=== PATIENT | male | born 1995 | race Caucasian/White ===

== ENCOUNTER 2016-06-28 15:47 | Inpatient (IN) ==
--- NOTE | 2016-06-28 15:59 | Emergency Department Note ---
Disposition Clinical Impression: Suicidal ideation Depression Qualifiers: Depression Type: unspecified Qualified Code(s): F32.9 - Major depressive disorder, single episode, unspecified Laceration of left wrist Qualifiers: Encounter type: initial encounter Qualified Code(s): S61.512A - Laceration without foreign body of left wrist, initial encounter Disposition: Admitted As Inpatient Condition: Good Referrals: NO,PCP [Primary Care Provider] - Time of Disposition: 21:17 Psych HPI - General Stated Complaint: SI attempt Time Seen by Provider: 06/28/16 15:48 Source: patient Mode of arrival: ambulatory Limitations: no limitations Nursing Notes Reviewed: Yes Vital Signs Reviewed: Yes - History of Present Illness HPI Narrative: Patient states he has been feeling depressed. He stopped taking his Depakote one to 2 weeks ago. He did a shot of vodka today and then self-induced a superficial laceration to his left volar wrist with a razor blade. He states he was arguing with his family. He feels suicidal. He denies auditory or visual hallucinations. He smoked marijuana couple of days ago. 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 Duration: intermittent History of similar episodes: Yes Improves with: none Worsens with: none Context: recent alcohol abuse, not taking psychiatric medications Alleged intoxication: No Associated Psychiatric Symptoms: depression, suicidal ideation Associated symptoms: Reports: denies other symptoms Traumatic symptoms: extremity injury Treatments prior to arrival: none Self harm or harm to others: admits thoughts of self harm, self-inflicted trauma - Related Data Allergies Allergy/AdvReac Type Severity Reaction Status Date / Time No Known Allergies Allergy Verified 06/28/16 15:51 All systems ED: reviewed and negative except as stated. Constitutional: Reports: as per HPI Eyes: Reports: as per HPI ENT ED: Reports: as per HPI Cardiovascular: Reports: as per HPI Respiratory: Reports: as per HPI Gastrointestinal: Reports: as per HPI Genitourinary: Reports: as per HPI Musculoskeletal: Reports: as per HPI Integumentary: Reports: other (Superficial self-inflicted skin abrasion) Neurological: Reports: as per HPI Psychiatric: Reports: depression, suicidal thoughts Endocrine: Reports: as per HPI Hematological/Lymphatic: Reports: as per HPI Allergic/Immunologic: Reports: as per HPI Past Medical History - Past Medical History Source: patient Medical history: Reports: no medical history Psychiatric history: Reports: anxiety, bipolar, depression, prior suicide attempt - Social History Smoking Status: Current some day smoker Smokeless Tobacco Status: No Alcohol use: Reports: none Drug use: Reports: marijuana Physical Exam - General Limitations: no limitations General appearance: alert, in no apparent distress - Head Head exam: atraumatic - Eye Eye exam: Present: normal appearance - ENT ENT exam: normal exam - Neck Neck exam: Present: normal inspection - Chest Chest inspection: Present: normal inspection, symmetric chest wall rise - Respiratory Respiratory exam: Present: normal lung sounds bilaterally - Cardiovascular Cardiovascular exam: Present: normal rhythm, tachycardia, normal heart sounds - Rectal Exam Rectal exam: Present: deferred - Neurological Exam Neurological exam: Present: alert, oriented X3, CN II-XII intact - Psychiatric Psychiatric exam: Present: normal mood, flat affect - Skin Skin exam: Present: warm, dry, other (Transverse superficial 3 cm laceration/ abrasion to the volar left wrist. No active bleeding) Course Course Narrative: Patient presents feeling suicidal and depressed. I will attempt to clear him medically for behavioral evaluation - Reevaluation(s) Reevaluation #1: Cleared medically for behavioral evaluation at 17:12 Reevaluation #2: The patient's self-inflicted superficial laceration will not require repair Reevaluation #3: 1A recs placement Additional Reevaluation(s): 1A now states that he cannot place him to a "diagnosis facility" because of insurance reasons. They state they are unable to admit him, per our psychiatrist, our psychiatric facility due to concern for alcohol withdrawal. They request admission to our medicine service. Call placed to the admitting hospitalist - Consultations Consultation #1: the hospitalist has come to the emergency department to evaluate the patient. He states the patient does not appear to be undergoing withdrawal. He recommends a dose of Librium just in case. He agrees to speak with the on-call psychiatrist to arrange disposition agreement Consultation #2: Dr. Ash accepts to 1A Vital Signs Temperature 98.3 F 06/28/16 15:51 Pulse Rate 101 06/28/16 15:51 Respiratory Rate 15 06/28/16 15:51 Blood Pressure 214/137 06/28/16 15:51 O2 Sat by Pulse Oximetry 97 06/28/16 15:51 Temperature 98.3 F 06/28/16 15:51 Pulse Rate 84 06/28/16 18:45 Respiratory Rate 15 06/28/16 16:02 Blood Pressure 152/79 06/28/16 18:45 O2 Sat by Pulse Oximetry 97 06/28/16 16:02 Oxygen Delivery Oxygen Delivery Room Air Psych - Lab Data Result diagrams: 06/28/16 16:21 06/28/16 16:21 Lab Results 06/28/16 06/28/16 06/28/16 Range/Units 16:02 16:21 16:21 WBC 8.8 (4.3-11.1) K/mcL RBC 5.32 (4.19-5.50) M/mcL Hgb 16.4 (12.9-16.9) g/dL Hct 47.2 (37.5-50.1) % MCV 88.7 (83.0-100.0) fL MCH 30.8 (28.0-33.3) pg MCHC 34.7 (31.6-35.5) g/dL RDW 13.1 (11.5-14.5) % Plt Count 234 (140-400) K/mcL MPV 10.1 (9.4-12.4) fL Immature Gran % 0.2 (0-4) % Seg Neutrophils % 57.3 % Lymphocytes % 28.7 % Monocytes % 9.6 % Eosinophils % 3.6 % Basophils % 0.6 % Neutrophils # 5.0 (1.6-8.9) K/mcL Lymphocytes # 2.5 (0.6-4.6) K/mcL Monocytes # 0.8 (0.0-1.3) K/mcL Eosinophils # 0.3 (0.0-0.6) K/mcL Basophils # 0.1 (0.0-0.2) K/mcL Sodium 140 (136-145) mEq/L Potassium 3.6 (3.5-4.5) mEq/L Chloride 105 (98-109) mEq/L Carbon Dioxide 25 (19-29) mEq/L BUN 12 (8-26) mg/dL Creatinine 1.05 (0.72-1.25) mg/dL Est GFR ( Amer) > 60 (> 60) Est GFR (Non-Af Amer) > 60 (> 60) BUN/Creatinine Ratio 11 (6-26) Glucose 88 (70-99) mg/dL Calculated Osmolality 289 (280-300) Calcium 10.1 (8.6-10.8) mg/dL Total Bilirubin 0.6 (0.2-1.2) mg/dL AST 26 (5-34) Units/L ALT 36 (0-55) Units/L Alkaline Phosphatase 48 (38-126) Units/L Serum Total Protein 8.3 (6.0-8.3) g/dL Albumin 4.7 (3.5-5.0) g/dL Globulin 3.6 H (2.4-3.5) g/dL Albumin/Globulin Ratio 1.3 (1.1-2.2) Salicylates < 5.0 L (15-30) mg/dL Urine Opiates Screen Negative (Hqmbwf=351) ng/mL Acetaminophen < 1.0 L (10-30) mcg/mL Ur Barbiturates Screen Negative (Bjokrv=816) ng/mL Ur Phencyclidine Scrn Negative (Cutoff=25) ng/mL Ur Amphetamines Screen Negative (Jlmbgs=1632) ng/mL U Benzodiazepines Scrn Positive H (Dqijqo=305) ng/mL Urine Cocaine Screen Negative (Cutoff= 300) ng/mL U Marijuana (THC) Screen Positive H (Cutoff = 50) ng/mL Ethyl Alcohol < 10 (0-10) mg/dL Psychiatric Medical Clearance - Medical Clearance Checklist Medical History: No Social History Section defined Current Vitals: Last Vital Signs Temp 98.3 F 06/28/16 15:51 Pulse 84 06/28/16 18:45 Resp 15 06/28/16 16:02 BP 152/79 06/28/16 18:45 Pulse Ox 97 06/28/16 16:02 Psychiatric Lab Panel: Drug Levels and Toxicity 06/28/16 06/28/16 16:02 16:21 Urine Opiates Screen Negative Acetaminophen < 1.0 L Ur Barbiturates Screen Negative Ur Phencyclidine Scrn Negative Ur Amphetamines Screen Negative U Benzodiazepines Scrn Positive H Urine Cocaine Screen Negative U Marijuana (THC) Screen Positive H Ethyl Alcohol < 10 Abnormal Labs: Abnormal lab results Globulin 3.6 g/dL (2.4-3.5) H 06/28/16 16:21 Salicylates < 5.0 mg/dL (15-30) L 06/28/16 16:21 Acetaminophen < 1.0 mcg/mL (10-30) L 06/28/16 16:21 U Benzodiazepines Scrn Positive ng/mL (Nszvfu=452) H 06/28/16 16:02 U Marijuana (THC) Screen Positive ng/mL (Cutoff = 50) H 06/28/16 16:02 Statement of Medical Clearance: I have evaluated the patient, reviewed diagnostic information, and certify that the patient's medical condition is sufficiently stable that transfer to the psychiatric unit does not pose a significant risk of deterioration.
[2016-06-28 16:19] LABS: Amphetamine Screen,Urine Negative ng/mL (Cutoff=1000); Barbiturate Screen,Urine Negative ng/mL (Cutoff=200); Benzodiazepines Screen,Urine Positive ng/mL (Cutoff=200); Cannabinoid Screen,Urine Positive ng/mL (Cutoff = 50); Cocaine Screen,Urine Negative ng/mL (Cutoff= 300); Opiate Screen,Urine Negative ng/mL (Cutoff=300); Phencyclidine Screen,Urine Negative ng/mL (Cutoff=25)
[2016-06-28 16:43] LABS: Basophils # 0.1 K/mcL (0.0-0.2); Basophils % 0.6 %; Eosinophils # 0.3 K/mcL (0.0-0.6); Eosinophils % 3.6 %; Hematocrit 47.2 % (37.5-50.1); Hemoglobin 16.4 g/dL (12.9-16.9); Immature Granulocytes % 0.2 % (0-4); Lymphocytes # 2.5 K/mcL (0.6-4.6); Lymphocytes % 28.7 %; Mean Corpuscular HGB Conc 34.7 g/dL (31.6-35.5); Mean Corpuscular Hemoglobin 30.8 pg (28.0-33.3); Mean Corpuscular Volume 88.7 fL (83.0-100.0); Mean Platelet Volume 10.1 fL (9.4-12.4); Monocytes # 0.8 K/mcL (0.0-1.3); Monocytes % 9.6 %; Platelet Count 234 K/mcL (140-400); Red Blood Count 5.32 M/mcL (4.19-5.50); Red Cell Distribution Width 13.1 % (11.5-14.5); Segmented Neutrophils % 57.3 %
[2016-06-28 17:08] LABS: Alanine Aminotransferase 36 Units/L (0-55); Albumin 4.7 g/dL (3.5-5.0); Albumin/Globulin Ratio 1.3 (1.1-2.2); Alkaline Phosphatase 48 Units/L (38-126); Aspartate Amino Transferase 26 Units/L (5-34); BUN/Creatinine Ratio 11 (6-26); Bilirubin,Total 0.6 mg/dL (0.2-1.2); Blood Urea Nitrogen 12 mg/dL (8-26); Calcium 10.1 mg/dL (8.6-10.8); Carbon Dioxide 25 mEq/L (19-29); Chloride 105 mEq/L (98-109); Globulin 3.6 g/dL (2.4-3.5); Glucose 88 mg/dL (70-99); Osmolality,Calculated 289 (280-300); Potassium 3.6 mEq/L (3.5-4.5); Sodium 140 mEq/L (136-145); Total Protein 8.3 g/dL (6.0-8.3); eGFR For African Americans > 60 (> 60); eGFR For Non-African Americans > 60 (> 60)
[2016-06-28 17:09] LABS: Ethanol < 10 mg/dL (0-10); Salicylate < 5.0 mg/dL (15-30)
[2016-06-28 17:56] LABS: Acetaminophen < 1.0 mcg/mL (10-30)
[2016-06-28] MEDS ORDERED: *HR* LORazepam 1 MG TABLET PO PRN ×2 (21:36→22:35)
--- NOTE | 2016-06-28 21:43 | Internal Medicine Consult Note ---
Date of Encounter: 06/28/16 Time of Encounter: 21:39 - Assessment and Plan (1) Alcohol use Current Visit: Yes Status: Acute Assessment and plan: At this point, I do not think the patient is at risk for acute alcohol withdrawal. We may continue Librium taper starting at 50 mg every 6 hours and hold if sedated, can decrease the dose once he seen by psychiatry. Continue use Ativan as needed orally. We can reevaluate the patient if psychiatry considers pertinent to reconsider admission to the medical floor (2) Accelerated hypertension Current Visit: Yes Status: Acute Assessment and plan: Start hydralazine orally Can use oral clonidine as needed (3) Suicidal ideation Current Visit: Yes Status: Acute Assessment and plan: Management per psychiatry (4) Depression Current Visit: Yes Status: Acute Assessment and plan: Continue management per psychiatry Thank you for allowing me to participate in the care of this patient. Please call with any questions Qualifiers: Depression Type: major depressive disorder Major depression recurrence: recurrent Active/Remission status: remission status unspecified Qualified Code(s): F33.9 - Major depressive disorder, recurrent, unspecified (5) Laceration of left wrist Current Visit: Yes Status: Acute Assessment and plan: Does not require any sutures at the moment. Qualifiers: Encounter type: initial encounter Qualified Code(s): S61.512A - Laceration without foreign body of left wrist, initial encounter (6) Tobacco consumption Current Visit: Yes Status: Acute Assessment and plan: Smoking cessation counseling given for 5 minutes. May use nicotine patch Internal Medicine - CN: HPI - Data of Consult Patient: new to practice Consult date: 06/28/16 Requesting Physician: Kristofer Ash MD - Consult Narrative Reason for consult: Alcohol abuse History of present illness: Mr. Munoz is a 21 year old male with a past medical history of tobacco use, depression, PTSD who had an argument earlier today with his mom, he decided to use a razor blade and inflicted himself a superficial cut on his left wrist. Apparently he was suicidal but denies any suicidal ideation at the moment. Psychiatry was contacted, Dr. Ash was concern about the patient alcohol use and possible withdrawal. At the moment, she is very stable his alcohol level is less than 10 ( 0), he says that he drinks every 3 weekends but for the past 2 weeks he has been drinking sometimes between one half and up to 1 pint of vodka. The patient says that he can drink for a few days and quit cold turkey without any problems. Initially, his heart rate was 101 and his blood pressure was 214/137 but he come down and his heart rate right now is 84 and his blood pressure is 152/79. The patient's urine tox screen was positive for my 1 and also for benzodiazepines as he takes Xanax as needed only, he says that he took the last dose of sinus yesterday 0.5 mg only 1 dose. The patient stopped his Depakote 2 weeks ago as he says that he was making him sleepy. He was given a dose of Librium 50 mg at the emergency room. I contacted Dr. Ash and discussed the case with him. Past Med Surg Social Fam HX - Past Medical History Medical history: other (Tobacco use, prior suicidal attempt, depression, PTSD, asthma, panic attacks) Psychiatric history: anxiety, bipolar, depression, prior suicide attempt - Past Surgical History Surgical History: no surgical history - Social History Smoking Status: Current some day smoker (Smokes rarely) Smokeless Tobacco Status: No Alcohol use: recent (Drinks heavily every 3 weeks but has been drinking daily for the past 2 weeks about half a pint and up to 1 pint daily) Drug use: marijuana - Additional Family History Additional family history: Father and mother with diabetes and hypertension Review of systems: Denies any chest pain, shortness of breath, no abdominal pain, no dysuria. Other systems out of the 10 reviewed were negative Internal Medicine - CN: Meds Divalproex (24 HR) [Depakote ER (24 HR)] 1,000 mg PO BID 06/28/16 [History] Allergies No Known Allergies Allergy (Verified 06/28/16 15:51) Internal Medicine - CN: Exam - Constitutional Vitals: Temp Pulse Resp BP Pulse Ox 98.3 F 84 15 152/79 97 06/28/16 15:51 06/28/16 18:45 06/28/16 16:02 06/28/16 18:45 06/28/16 16:02 General appearance IM: Present: A&O X 3 - Head Head exam: Present: atraumatic - Expanded Head Exam Head exam expanded IM: Absent: abrasion, Quijano's sign, contusion - Eye Eye exam: Present: conjunctival injection, EOMI, normal appearance, PERRL - Neck Neck exam general surgery: Present: full ROM, normal inspection. Absent: lymphadenopathy, tenderness - Expanded Neck Exam Neck exam: Absent: anterior neck swelling, carotid bruit - Respiratory Respiratory exam: Absent: accessory muscle use, chest wall tenderness, decreased breath sounds, rales, respiratory distress, rhonchi, wheezes - Cardiovascular Cardiovascular exam IM: Absent: bradycardia, diastolic murmur, irregular rhythm , systolic murmur, tachycardia - GI/Abdominal GI/Abdominal exam IM: Present: distended, normal bowel sounds, soft. Absent: mass, splenomegaly, tenderness - Extremities Exam Extremities exam IM: Present: full ROM. Absent: calf tenderness Additional comments: Small superficial laceration on the left wrist less than 3 cm that did not require any sutures - Expanded Lower Extremities Exam Hip exam: Absent: dislocation Upper Leg exam: Absent: abrasion, crepitus, deformity - Neurological Exam Neurological exam: Present: alert, CN II-XII intact, oriented X3. Absent: altered Additional comments: No tremors - Psychiatric Psychiatric exam: Present: depressed, normal affect, suicidal ideation (The patient says he is not suicidal anymore). Absent: agitated, anxious, flat affect, homicidal ideation, manic Internal Medicine - CN: Reslt - Labs CBC & Chem 7: 06/28/16 16:21 06/28/16 16:21 Consult Discharge Plan - Plan Referrals: NO,PCP [Primary Care Provider] -
[2016-06-28] MEDS ORDERED: Nicotine 21 MG PATCH.TD24 TD SCH (22:00)
[2016-06-28] MEDS ORDERED: MOM Conc 10 ML UD.LIQ PO PRN (22:35)
[2016-06-28] MEDS ORDERED: Haloperidol Lactate 5 MG/ML VIAL IM PRN (22:35)
[2016-06-28] MEDS ORDERED: hydrOXYzine pamoate 25 MG CAPSULE PO PRN (22:35)
[2016-06-28] MEDS ORDERED: Mag Hydrox/Al Hydrox/Simeth 30 ML UDC PO PRN (22:35)
[2016-06-28] MEDS ORDERED: Acetaminophen 325 MG TABLET PO PRN (22:35)
[2016-06-28] MEDS ORDERED: *HR* LORazepam 2 MG/ML VIAL IM PRN (22:35)
[2016-06-29] MEDS: hydrALAZINE 10 MG TABLET PO SCH ×4 (05:46→17:44)
--- NOTE | 2016-06-29 08:39 | Event Note ---
Date of Encounter: 06/29/16 Time of Encounter: 08:00 Discussed with nursing staff. Patient's blood pressure is better controlled. He is not having any symptoms of alcohol withdrawal and is currently asleep. We will sign off for now. Please call with any questions.
[2016-06-29] MEDS: Divalproex (24 HR) 500 MG TABLET PO SCH (09:31)
[2016-06-29] MEDS: cloNIDine HCl 0.1 MG TABLET PO SCH ×3 (09:32→22:12)
--- NOTE | 2016-06-29 21:27 | Psychiatry History & Physical ---
Date of Encounter: 06/29/16 Time of Encounter: 21:20 History of Present Illness Patient Stated Chief Complaint: "Nervous breakdown and slashed my wrist" Medicare Admission Attestation: For traditional Medicare patients the provided hospital inpatient services are reasonable and necessary and in the case of services not specified as inpatient -only under 42 CFR 419.22 (n), that they are appropriately provided as inpatient services in accordance 42 CFR 412.3. For Critical Access Hospital the patient may reasonably be expected to be discharged or transferred to a hospital within 96 hours after admission to the Critical Access Hospital. Admitted From: Emergency Dept Plans for Post Hospital Care: Home History of Present Illness: Mr. Munoz is a 21 year old male with onset of depression since childhood. He has never been hospitalized for mental health issues before. He has been receiving Depakote and Xanax from his PCP. He had tested positive for THC and PCP stopped the Xanax. He has been on a drinking binge for last 2 weeks. He also uses Xanax sporadically. Yesterday he had a verbal altercation with his mother which escalated to a point where he made suicidal threat and superficial cut on his left wrist. When depressed he develops insomnia, negative thoughts, social isolation, anhedonia. He would become paranoid off and on but never had any hallucinations. No h/o past suicide attempts. Past Med Surg Social Fam HX - Past Medical History Medical history: no medical history, asthma, hypertension - Past Psychiatric History Psychiatric history: Reports: anxiety, depression, panic disorder Family psychiatric history: Yes Family History of Suicide: Attempted - Past Surgical History Surgical History: no surgical history - Social History Smoking Status: Current some day smoker Smokeless Tobacco Status: No Alcohol use: recent Drug use: marijuana Occupational status: unemployed Current living situation: With Family Activity Level: Independent ambulation Recent Out of Country Travel Within the Last 8 Weeks: No Exposure or Possible Exposure to Illness During Travel: No - Family History Mother Hx Family Cardiac Disorders: Yes (HTN) Father Hx Family Cardiac Disorders: Yes (HTN) Medications & Allergies Divalproex (24 HR) [Depakote ER (24 HR)] 1,000 mg PO BID 06/28/16 [History] Allergies No Known Allergies Allergy (Verified 06/28/16 15:51) Review of Systems Psychiatric: Reports: depression, suicidal ideation, anhedonia, hopelessness, irritability, panic attacks Mental Status Exam Level of alertness: Alert Patient appearance: Appropriate, Well Groomed Behavior: cooperative Psychomotor activity: Normal Eye contact: Maintains Eye Contact Mood description: Depressed Affect description: congruent with mood Speech pattern: Normal rate Speech volume: Normal Thought process: Intact, Logical Intelligence estimate: Average Results - Vital Signs Vital signs: Temp Pulse Resp BP Pulse Ox 98.6 F 85 16 162/111 97 06/29/16 20:31 06/29/16 20:31 06/29/16 20:31 06/29/16 20:31 06/28/16 16:02 - Labs Labs: Laboratory Last Values WBC 8.8 K/mcL (4.3-11.1) 06/28/16 16:21 RBC 5.32 M/mcL (4.19-5.50) 06/28/16 16:21 Hgb 16.4 g/dL (12.9-16.9) 06/28/16 16:21 Hct 47.2 % (37.5-50.1) 06/28/16 16:21 MCV 88.7 fL (83.0-100.0) 06/28/16 16:21 MCH 30.8 pg (28.0-33.3) 06/28/16 16:21 MCHC 34.7 g/dL (31.6-35.5) 06/28/16 16:21 RDW 13.1 % (11.5-14.5) 06/28/16 16:21 Plt Count 234 K/mcL (140-400) 06/28/16 16:21 MPV 10.1 fL (9.4-12.4) 06/28/16 16:21 Immature Gran % 0.2 % (0-4) 06/28/16 16:21 Seg Neutrophils % 57.3 % 06/28/16 16:21 Lymphocytes % 28.7 % 06/28/16 16:21 Monocytes % 9.6 % 06/28/16 16:21 Eosinophils % 3.6 % 06/28/16 16:21 Basophils % 0.6 % 06/28/16 16:21 Neutrophils # 5.0 K/mcL (1.6-8.9) 06/28/16 16:21 Lymphocytes # 2.5 K/mcL (0.6-4.6) 06/28/16 16:21 Monocytes # 0.8 K/mcL (0.0-1.3) 06/28/16 16:21 Eosinophils # 0.3 K/mcL (0.0-0.6) 06/28/16 16:21 Basophils # 0.1 K/mcL (0.0-0.2) 06/28/16 16:21 Sodium 140 mEq/L (136-145) 06/28/16 16:21 Potassium 3.6 mEq/L (3.5-4.5) 06/28/16 16:21 Chloride 105 mEq/L (98-109) 06/28/16 16:21 Carbon Dioxide 25 mEq/L (19-29) 06/28/16 16:21 BUN 12 mg/dL (8-26) 06/28/16 16:21 Creatinine 1.05 mg/dL (0.72-1.25) 06/28/16 16:21 Est GFR ( Amer) > 60 (> 60) 06/28/16 16:21 Est GFR (Non-Af Amer) > 60 (> 60) 06/28/16 16:21 BUN/Creatinine Ratio 11 (6-26) 06/28/16 16:21 Glucose 88 mg/dL (70-99) 06/28/16 16:21 Calculated Osmolality 289 (280-300) 06/28/16 16:21 Calcium 10.1 mg/dL (8.6-10.8) 06/28/16 16:21 Total Bilirubin 0.6 mg/dL (0.2-1.2) 06/28/16 16:21 AST 26 Units/L (5-34) 06/28/16 16:21 ALT 36 Units/L (0-55) 06/28/16 16:21 Alkaline Phosphatase 48 Units/L (38-126) 06/28/16 16:21 Serum Total Protein 8.3 g/dL (6.0-8.3) 06/28/16 16:21 Albumin 4.7 g/dL (3.5-5.0) 06/28/16 16:21 Globulin 3.6 g/dL (2.4-3.5) H 06/28/16 16:21 Albumin/Globulin Ratio 1.3 (1.1-2.2) 06/28/16 16:21 Salicylates < 5.0 mg/dL (15-30) L 06/28/16 16:21 Urine Opiates Screen Negative ng/mL (Rybyxb=391) 06/28/16 16:02 Acetaminophen < 1.0 mcg/mL (10-30) L 06/28/16 16:21 Ur Barbiturates Screen Negative ng/mL (Ackcwr=794) 06/28/16 16:02 Ur Phencyclidine Scrn Negative ng/mL (Cutoff=25) 06/28/16 16:02 Ur Amphetamines Screen Negative ng/mL (Wvmjlk=9682) 06/28/16 16:02 U Benzodiazepines Scrn Positive ng/mL (Twdncx=463) H 06/28/16 16:02 Urine Cocaine Screen Negative ng/mL (Cutoff= 300) 06/28/16 16:02 U Marijuana (THC) Screen Positive ng/mL (Cutoff = 50) H 06/28/16 16:02 Ethyl Alcohol < 10 mg/dL (0-10) 06/28/16 16:21 Assessment and Plan (1) Major depression, chronic Current visit: Yes Status: Acute Plan: Admit inpatient for safety and stabilization, Close observation, Suicide Precautions per unit protocol, Encourage participation in unit milieu, Group Therapy, Monitor sleep, Monitor appetite, Secure weapons, Family/Supportive other meeting Risks, benefits, side effects, alternatives discussed w/pt: Yes Patient agreeable to treatment: Yes (Start Trileptal for depression and anxiety) Plans for Post Hospital Care: Home Estimated Length of Stay (Days) : 5
[2016-06-29] MEDS: traZODone 50 MG TABLET PO PRN (22:13)
[2016-06-29] MEDS: OXcarbazepine 150 MG TABLET PO SCH (22:13)
[2016-06-30] MEDS: hydrALAZINE 10 MG TABLET PO SCH ×5 (00:59→23:54)
[2016-06-30] MEDS: Divalproex (24 HR) 500 MG TABLET PO SCH (02:34)
[2016-06-30] MEDS ORDERED: OXcarbazepine 150 MG TABLET PO SCH (09:00)
[2016-06-30] MEDS: OXcarbazepine 150 MG TABLET PO SCH ×2 (09:38→22:57)
[2016-06-30] MEDS: cloNIDine HCl 0.1 MG TABLET PO SCH ×3 (09:38→22:37)
--- NOTE | 2016-06-30 13:21 | Psychiatry Progress Note ---
Date of Encounter: 06/30/16 Time of Encounter: 13:20 Subjective Interval history: Pt reports he is feeling a lot calmer. Sleep has improved. Started Trileptal yesterdsaay and feels better on it. No s/e from it. Review of Systems Psychiatric: Reports: depression, anhedonia Objective: Exam Level of alertness: Alert Patient appearance: Appropriate, Well Groomed Behavior: cooperative Psychomotor activity: Normal Eye contact: Maintains Eye Contact Mood description: Depressed Affect description: congruent with mood Speech pattern: Normal rate Speech volume: Normal Thought process: Intact, Logical Results - Vital Signs Vital Signs: Temp Pulse Resp BP Pulse Ox 98.6 F 80 18 141/92 97 06/30/16 09:00 06/30/16 09:00 06/30/16 09:00 06/30/16 09:00 06/28/16 16:02 Assessment and Plan (1) Major depression, chronic Current visit: Yes Status: Acute Risks, benefits, side effects, alternatives discussed w/pt: Yes Patient agreeable to treatment: Yes (Start Trileptal for depression and anxiety) (2) Depression Current visit: Yes Status: Acute Plan: Close observation, Monitor sleep, Monitor appetite, Secure weapons, Family /Supportive other meeting Risks, benefits, side effects, alternatives discussed w/pt: Yes (Will increase trileptal) Patient agreeable to treatment: Yes Qualifiers: Depression Type: major depressive disorder Major depression recurrence: recurrent Active/Remission status: remission status unspecified Qualified Code(s): F33.9 - Major depressive disorder, recurrent, unspecified Consult Discharge Plan - Plan Referrals: NO,PCP [Primary Care Provider] -
[2016-06-30] MEDS: traZODone 50 MG TABLET PO PRN (22:37)
[2016-07-01] MEDS: hydrALAZINE 10 MG TABLET PO SCH ×3 (07:01→18:20)
[2016-07-01] MEDS: OXcarbazepine 150 MG TABLET PO SCH ×2 (08:47→21:13)
[2016-07-01] MEDS: cloNIDine HCl 0.1 MG TABLET PO SCH ×3 (08:47→21:13)
--- NOTE | 2016-07-01 13:25 | Psychiatry Progress Note ---
Date of Encounter: 07/01/16 Time of Encounter: 13:22 Subjective Interval history: Patient she will follow-up. Notes and medication reviewed. Patient reports him better on new medication denied any anxiety or panic attacks and denies any withdrawal symptoms. He regrets his attempts to cut himself and currently feeling more optimistic. Denies any side effects from medication and denies suicidal ideation. Review of Systems Psychiatric: Reports: depression, anhedonia Objective: Exam Patient orientation: Yes Person, Yes Time, Yes Place Level of alertness: Alert Patient appearance: Appropriate, Well Groomed Behavior: calm, cooperative Psychomotor activity: Normal Eye contact: Maintains Eye Contact Mood description: Euthymic/stable, Anxious Affect description: congruent with mood Speech pattern: Normal rate, Excessive Speech volume: Normal Thought process: Intact, Logical Thought content: No Suicidal ideation, No Homicidal ideation, No Overt delusions Perceptual disturbances: No Auditory hallucinations, No Visual hallucinations Judgment: Fair Insight: Partial Results - Vital Signs Vital Signs: Temp Pulse Resp BP Pulse Ox 98 F 77 16 113/75 97 07/01/16 12:28 07/01/16 12:28 07/01/16 12:28 07/01/16 12:28 06/28/16 16:02 Assessment and Plan (1) Major depression, chronic Current visit: Yes Status: Acute Plan: Continue hospitalization, Close observation, Suicide Precautions per unit protocol, Encourage participation in unit milieu, Group Therapy, Monitor sleep, Monitor appetite Risks, benefits, side effects, alternatives discussed w/pt: Yes Patient agreeable to treatment: Yes (Start Trileptal for depression and anxiety) Consult Discharge Plan - Plan Referrals: NO,PCP [Primary Care Provider] -
[2016-07-01] MEDS: traZODone 50 MG TABLET PO PRN (22:15)
[2016-07-02] MEDS: hydrALAZINE 10 MG TABLET PO SCH ×3 (00:20→08:28)
[2016-07-02] MEDS: cloNIDine HCl 0.1 MG TABLET PO SCH ×2 (08:28→14:15)
[2016-07-02] MEDS: OXcarbazepine 150 MG TABLET PO SCH (08:28)
--- NOTE | 2016-07-02 11:40 | Discharge Summary ---
Date of Encounter: 07/02/16 Time of Encounter: 11:36 Diagnosis - Discharge Diagnosis (1) Major depression, chronic Status: Acute Medications - Discharge Medications Prescriptions: Oxcarbazepine [Trileptal] 450 mg PO BID 30 Days Oxcarbazepine [Trileptal] 450 mg PO BID 30 Days 07/02/16 [Rx] Allergies No Known Allergies Allergy (Verified 06/28/16 15:51) Provider Date of admission: 06/28/16 21:28 Primary care physician: PCP NO Discharging clinician: Liborio Latif Assessment and Plan - Patient/Caregiver Discharge Instructions Activity: resume usual activities as tolerated Diet: regular diet - Follow up Plan Follow up with: [facility] [Outside] - 07/04/16 2:00 pm (The above appointment is with Jyoti for counseling. You will also see Alyse Munoz, psychiatric prescriber, on 09/12/2016 at 1:30pm. Please arrive 15 minutes early to complete paperwork. Please bring your insurance card, photo ID and medications in their original bottles. If you do not have insurance, bring proof of income to apply for the sliding fee scale. If you are unable to keep this appointment, 24 hour business notice of cancellation is expected. ) [facility] [Outside] - 07/15/16 4:30 pm (The above appointment is with Juli Montero.) Functional capacity at discharge: independent ambulation Overall status at discharge: Stable Disposition: Home, Self-Care Hospital Course Hospital course: Mr. Munoz is a 21 year old male admitted for evaluation of suicide attempts by cutting himself. For details of the admission please see H&P On the units patient was started on Trileptal, he responded well to medication, he reported improved sleep, less anxiety and mood stability. He participated in groups and activities, he denied any suicidal ideation or anxiety attacks. His discharge plans were completed by the elementary school social worker. Prior to discharge patient was medically stable and future oriented and optimistic. - Time Spent with Patient Total time spent providing and/or coordinating discharge services: Less than 30 minutes Quality - Multiple Antipsychotics Patient discharged on 2 or more antipsychotic medications: No Procedures - Procedures Procedures: Medication Management, Crisis Stabilization, Supportive Therapy, Group Therapy, Psychoeducational Therapy Mental Status Exam - Mental Status Exam Patient orientation: Yes Person, Yes Time, Yes Place Level of alertness: Alert Patient appearance: Appropriate, Well Groomed Behavior: calm, cooperative Psychomotor activity: Normal Eye contact: Maintains Eye Contact Mood description: Euthymic/stable Affect description: congruent with mood, full range Speech pattern: Normal rate, Normal rhythm, Normal tone Speech Volume: Normal Thought process: Linear, Goal Oriented Thought Content: No Suicidal ideation, No Homicidal ideation, No Overt delusions Perceptual Disturbances: No Auditory hallucinations, No Visual hallucinations Judgment: Limited Insight: Partial
[2016-07-02 14:23] VITALS: BP 124/76
== END 2016-07-02 17:00 | disposition home or self-care (01) | DRG 751 ==
LOC: EMEROO 15:47 → SUATTDRO 21:28 → 1ANU 21:28
PROVIDERS: ADMIT Psychiatry & Neurology Psychiatry; ATTEND Psychiatry & Neurology Psychiatry